=== PATIENT | female | born 1955 | race Caucasian/White ===

== ENCOUNTER 2022-03-03 14:35 | Outpatient (CLI) | payer MEDICARE | END 2022-03-03 14:36 | disposition home or self-care (01) | LOC: CSHMRI 14:35 | PROVIDERS: ATTEND Orthopaedic Surgery | DX: S83.203A Other tear of unspecified meniscus, current injury, right knee, initial encounter (principal); S83.231A Complex tear of medial meniscus, current injury, right knee, initial encounter; M84.451A Pathological fracture, right femur, initial encounter for fracture; M94.8X6 Other specified disorders of cartilage, lower leg; M25.461 Effusion, right knee; M71.21 Synovial cyst of popliteal space [Baker], right knee ==